=== PATIENT | male | born 1980 | race Caucasian/White ===

== ENCOUNTER 2017-05-08 10:16 | Emergency (ER) | payer OTHER ==
[~2017-05-08] VITALS: Ht 177.8 cm; Wt 110.0 kg
[2017-05-08 10:17] VITALS: BP 123/84; PULSE 90; RESP 16; TEMP 98.4; O2SAT 98
[2017-05-08] MEDS ORDERED: SODIUM CHLOR 0.9% 1000 ML INJ 1,000 ML IV ONE (10:34)
[2017-05-08] MEDS ORDERED: SODIUM CHLORIDE 0.9% FLUSH 10 ML FLUSH IVF PRN (10:45)
[2017-05-08] MEDS ORDERED: KETOROLAC TROMETHAMINE 30 MG/ML (IVP) VIAL IVP ONE (10:45)
--- NOTE | 2017-05-08 11:20 | RADRPT ---
EXAM DATE/TIME: 05/08/2017 11:15 [place] COMPARISON: No previous studies available for comparison. INDICATIONS : Abdominal pain. MEDICAL HISTORY : Renal calculi. SURGICAL HISTORY : None. ENCOUNTER: Initial ACUITY: 2 weeks PAIN SCORE: 10/10 LOCATION: Bilateral abdomen FINDINGS: Supine view of the abdomen was performed. The abdominal bowel gas pattern is normal. No abnormal ma sses, calcifications, or organomegaly is seen. The osseous structures are unremarkable. CONCLUSION: Normal examination. Moris Carter MD on May 08, 2017 at 11:18 Board Certified Radiologist. This report was verified electronically.
--- NOTE | 2017-05-08 11:20 | PD ---
HPI Chief Complaint: Flank/Kidney Pain Time Seen by Provider: 10:34 Travel History International Travel<30 days: No Contact w/Intl Traveler<30days: No Traveled to known affect area: No History of Present Illness HPI 36 y/o male presents with right sided pain and states he recently was in [place] and diagnosed with a kidney stone that was 1 cm. They advised him he needed to follow with the urologist but he is having difficulty with this. He went to [facility] and had a CAT scan and it showed it it only moved a little bit but given his blood work was stable he again was advised to follow outpatient with the urologist. He states that he is taking Percocet for the pain. He is concerned because he's having difficulty getting in with the urologist. He denies other complaints other than the pain. Quality pain is sharp. 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 well appearing SKIN: Warm and dry. HEAD: Normocephalic and atraumatic. EYES: No injection or drainage. ENT: No nasal drainage noted. NECK: Supple, trachea midline. CARDIOVASCULAR: Regular rate and rhythm RESPIRATORY: no increased effort. No accessory muscle use. GASTROINTESTINAL: Abdomen soft, non-tender, nondistended. NEUROLOGICAL: Awake and alert. Motor and sensory grossly within normal limits. Normal speech. Data Data Last Documented VS Vital Signs Date Time Temp Pulse Resp B/P Pulse Ox O2 Delivery O2 Flow Rate FiO2 05/08/17 10:17 98.4 90 16 123/84 98 Orders Complete Blood Count With Diff (05/08/17 10:34) Basic Metabolic Panel (Bmp) (05/08/17 10:34) Urinalysis - C+S If Indicated (05/08/17 10:34) Ecg Monitoring (05/08/17 10:34) Iv Access Insert/Monitor (05/08/17 10:34) Ketorolac Inj (Toradol Inj) (05/08/17 10:45) Sodium Chloride 0.9% Flush (Ns Flush) (05/08/17 10:45) Sodium Chlor 0.9% 1000 Ml Inj (Ns 1000 M (05/08/17 10:34) Abdomen, Kub Only (05/08/17 ) Labs Laboratory Tests Test 05/08/17 05/08/17 10:44 11:15 White Blood Count 9.1 TH/MM3 Red Blood Count 5.70 MIL/MM3 Hemoglobin 13.2 GM/DL Hematocrit 40.6 % Mean Corpuscular Volume 71.3 FL Mean Corpuscular Hemoglobin 23.2 PG Mean Corpuscular Hemoglobin 32.6 % Concent Red Cell Distribution Width 18.2 % Platelet Count 568 TH/MM3 Mean Platelet Volume 7.3 FL Neutrophils (%) (Auto) 71.7 % Lymphocytes (%) (Auto) 15.9 % Monocytes (%) (Auto) 10.2 % Eosinophils (%) (Auto) 1.0 % Basophils (%) (Auto) 1.2 % Neutrophils # (Auto) 6.5 TH/MM3 Lymphocytes # (Auto) 1.4 TH/MM3 Monocytes # (Auto) 0.9 TH/MM3 Eosinophils # (Auto) 0.1 TH/MM3 Basophils # (Auto) 0.1 TH/MM3 CBC Comment DIFF FINAL Differential Comment Sodium Level 136 MEQ/L Potassium Level 4.2 MEQ/L Chloride Level 103 MEQ/L Carbon Dioxide Level 24.0 MEQ/L Anion Gap 9 MEQ/L Blood Urea Nitrogen 29 MG/DL Creatinine 2.31 MG/DL Estimat Glomerular Filtration 32 ML/MIN Rate Random Glucose 81 MG/DL Calcium Level 10.2 MG/DL Urine Color YELLOW Urine Turbidity CLEAR Urine pH 5.5 Urine Specific Isabella 1.015 Urine Protein NEG mg/dL Urine Glucose (UA) NEG mg/dL Urine Ketones NEG mg/dL Urine Occult Blood TRACE Urine Nitrite NEG Urine Bilirubin NEG Urine Urobilinogen LESS THAN 2.0 MG/DL Urine Leukocyte Esterase NEG Urine RBC 5 /hpf Urine WBC 2 /hpf Urine Bacteria RARE /hpf Urine Mucus FEW /lpf Microscopic Urinalysis Comment CULT NOT INDICATED MDM Medical Decision Making Medical Screen Exam Complete: Yes Emergency Medical Condition: Yes Medical Record Reviewed: Yes (pmh confirmed) Interpretation(s) CBC & BMP Diagram 05/08/17 10:44 Last 24 hours Impressions Abdomen X-Ray 05/08/17 0000 Signed Impressions: Service Date/Time: Monday, May 08, 2017 11:15 - CONCLUSION: Normal examination. Moris Carter MD ua no signs of infection Differential Diagnosis Stone, pain control, renal failure Narrative Course Will check blood work, urinalysis, KUB and dose with Toradol while obtaining records patient with elevated creatnine, will discuss with urology Patient denies any new complaints, all questions answered. Patient knows that follow up is incumbent on them and to return to the emergency room immediately if new or worsening symptoms develop. Patient given strict return precautions, vitals reviewed and are normal, agrees to further workup as an outpatient. After patient left received records which show creatinine 2.16 and BUN 26, CT scan abdomen pelvis approximately 10 mm stone at [facility] from [facility] records Physician Communication Physician Communication dr moraes states to [place] and follow in office when I review elevated creatnine and history with him, no need for more imaging, I told him I did not receive records he had 1 cm stone and likely high location and no prior creatnine on file here Diagnosis Primary Impression: Renal insufficiency Additional Impression: Kidney stone Referrals: Refugio Moraes MD call for appointment this week Patient Instructions: General Instructions Additional Instructions: return as needed, continue pain medication as prescribed Med/Other Pt SpecificInfo: No Change to Meds Disposition: 01 DISCHARGE HOME Condition: Stable Arlette Friedman MD May 08, 2017 11:20
[2017-05-08 11:21] LABS: AUTOMATED NEUTROPHIL # 6.5 TH/MM3 (1.8-7.7); BASOPHIL # 0.1 TH/MM3 (0-0.2); BASOPHIL % 1.2 % (0.0-2.0); EOSINOPHIL # 0.1 TH/MM3 (0-0.4); HEMATOCRIT 40.6 % (39.0-51.0); HEMO FLAGS DIFF FINAL; LYMPH % 15.9 % (9.0-44.0); LYMPHOCYTE # 1.4 TH/MM3 (1.0-4.8); MEAN CELL VOLUME 71.3 FL (80.0-100.0); MEAN CORPUSCULAR HEMOGLOBIN 23.2 PG (27.0-34.0); MEAN CORPUSCULAR HGB CONC 32.6 % (32.0-36.0); MONO % 10.2 % (0.0-8.0); NEUT % 71.7 % (16.0-70.0); PLATELET COUNT 568 TH/MM3 (150-450); RED CELL DISTRIBUTION WIDTH 18.2 % (11.6-17.2); WHITE BLOOD COUNT 9.1 TH/MM3 (4.0-11.0)
[2017-05-08 11:34] LABS: BACTERIA, URINE RARE /hpf; BLOOD, URINE TRACE (NEG); COMMENT (UR) CULT NOT INDICATED; CULTURE IF INDICATED CULT NOT INDICATED; GLUCOSE,URINE NEG (NEG); KETONE, URINE NEG (NEG); MUCUS URINE FEW /lpf (OCC); NITRITE,URINE NEG (NEG); PH, URINE 5.5 (5.0-8.5); URINE COLOR YELLOW (YELLW/STRAW)
[2017-05-08 11:44] LABS: POTASSIUM 4.2 MEQ/L (3.5-5.1)
== END 2017-05-08 13:38 | disposition home or self-care (01) ==
LOC: NEPC 10:16
DX: N20.0 Calculus of kidney (principal); N28.9 Disorder of kidney and ureter, unspecified; I10 Essential (primary) hypertension
CPT/HCPCS: 74000; 80048; 81001; 85025; 96374; 99284; J1885; J7030